=== PATIENT | female | born 1995 | race Caucasian/White ===

== ENCOUNTER 2018-06-23 00:50 | Emergency (ER) | payer SELFPAY ==
[~2018-06-23 00:50] MED LIST: IBUP600T22 PO; ISOT10CA3 PO; ORAL BIRTH CONTROL PO; TRAM-420 PO
--- NOTE | 2018-06-23 00:53 | ER Report ---
History and Physical Time Seen By MD: 00:52 HPI/ROS CHIEF COMPLAINT: Alcohol poisoning HISTORY OF PRESENT ILLNESS: 23-year-old female brought in by her roommates who are nursing students. Patient consumed excess alcohol. She's been vomiting for the last several hours. Her clothing is covered in emesis. She has a heavy odor of EtOH. She responds to painful stimuli. She is awake enough to refuse care. She states she doesn't want anything done. She is offered IV fluid hydration, Zofran, and diagnostic blood alcohol level. Patient's undressed out of her vomit saturated close into a gown. Palpation of the head reveals no head injury or trauma. REVIEW OF SYSTEMS: Respiratory: No cough, no dyspnea. Cardiovascular: No chest pain, no palpitations. Gastrointestinal: No vomiting, no abdominal pain. Musculoskeletal: No back pain. Allergies: Coded Allergies: No Known Drug Allergies (Unverified , 06/23/18) Home Meds Reported Medications [Oral Control] No Conflict Check, 1 TAB PO QDAY 10/28/15 Discontinued Reported Medications Isotretinoin (ABSORICA) 10 Mg Capsule, 10 MG PO BID, CAPSULE 10/28/15 Ibuprofen (IBUPROFEN) 600 Mg Tablet, 1 TAB PO Q6H, TAB 10/28/15 Discontinued Scripts Tramadol Hcl (TRAMADOL HCL) 50 Mg Tablet, 50-100 MG PO Q6H, #14 TAB Prov:VALERY,ISAURA Lai CURTAIN FRAMER 10/28/15 Reviewed Nurses Notes: Yes Old Medical Records Reviewed: Yes Hx Smoking: No Smoking Status: Never Smoker Exposure to Second Hand Smoke?: No Hx Substance Use Disorder: No Constitutional Vital Sign - Last 24 Hours 06/23/18 06/23/18 00:58 01:00 Temp 97.9 Pulse 115 Resp 16 B/P (MAP) 119/86 (97) 119/86 Pulse Ox 91 O2 Delivery Room Air Physical Exam General Appearance: patient is alert, has no immediate need for airway protection and no current signs of toxicity. Vital signs stable, afebrile, pulse ox normal HEENT: Pupils equal and round no injection. TMs negative, oropharynx without dental trauma, heavy odor of emesis and EtOH. Respiratory: Chest is non tender, lungs are clear to auscultation. Cardiac: regular rate and rhythm Gastrointestinal: Abdomen is soft and non tender, no masses, bowel sounds normal. Musculoskeletal: Neck: Neck is supple and non tender. Extremities have full range of motion and are non tender. Skin: No rashes or lesions. DIFFERENTIAL DIAGNOSIS: After history and physical exam differential diagnosis was considered for alcohol intoxication, polysubstance abuse., Head trauma Medical Decision Making ED Course/Re-evaluation ED Course Page was admitted to an examination room. Via wheelchair. She was assisted to the bed by staff members. She was undressed into a gown. Patient responds to painful stimuli. He is alert enough to voice that she does not want any treatment. She was offered IV hydration, Zofran IV to control her vomiting. Patient was then observed ambulating in the room with her friends, taking pictures for social media page. Patient was medically cleared for discharge. Paperwork was completed. Decision to Disposition Date: Jun 23, 2018 Decision to Disposition Time: 01:26 Depart Departure Latest Vital Signs Vital Signs Date Time Temp Pulse Resp B/P (MAP) Pulse Ox O2 Delivery O2 Flow Rate FiO2 06/23/18 01:00 97.9 115 16 119/86 91 Room Air Impression: Primary Impression: Alcohol poisoning Condition: Improved Disposition: HOME OR SELF-CARE Patient Instructions: Abuse of Alcohol (ED) Additional Instructions: Avoid drinking to excess Problem Qualifiers Primary Impression: Alcohol poisoning Encounter type: initial encounter Injury intent: accidental or unintentional Qualified Codes: T51.91XA - Toxic effect of unspecified alcohol, accidental (unintentional), initial encounter DAILY TENORIO DO Jun 23, 2018 00:52
[2018-06-23 01:00] VITALS: BP 119/86
[2018-06-23] MEDS ORDERED: NS(*) 0.9% 1000 ML BAG 1,000 ML IV ONE (01:00)
[2018-06-23] MEDS ORDERED: ONDANSETRON 4 MG/2 ML VIAL IVP ONE (01:00)
== END 2018-06-23 01:48 | disposition home or self-care (01) ==
LOC: ER 00:59
DX: F10.920 Alcohol use, unspecified with intoxication, uncomplicated (principal)
CPT/HCPCS: 99281